=== PATIENT | female | born 1950 | race Caucasian/White ===

== ENCOUNTER 2024-06-09 06:24 | Day surgery (SDC) | payer MEDICARE, OTHER ==
[~2024-06-09] VITALS: Ht 162.6 cm; Wt 75.4 kg
[2024-06-09] VITALS (16 sets, daily range): BP systolic 104–163; BP diastolic 54–883
[~2024-06-09 06:24] MED LIST: ASPIR 8181 M1 PO; Acetaminophen 500 MG Tab PO SCH; CeFAZolin Sodium 2,000 MG in NS 100 ML IV SCH; Chlorhexidine Mouth Care 15 ML UDC MT SCH; Crestor40 MG PO; Flonase 0.05% N16 GM; IBUP600 PO; JARDIANCE25 MG PO; Lactated Ringer's 1,000 ML IV SCH; OxyCODONE HCL 10 MG TABCR PO SCH; Ropivacaine 0.5% HCl/Pf 123.125 MG,EPINEPHrine HCL 0.25 MG,Ketorolac Tromethamine 15 MG... INFIL SCH; TRULICITY3 MG/0.5 M SC; Tranexamic Acid 100 ML IV SCH; Vancomycin HCL 1,000 MG in NS 250 ML IV SCH
[2024-06-09] MEDS ORDERED: ALBU90OI INH (06:38)
[2024-06-09] MEDS ORDERED: Pulmicort Fle180 MCG INH (06:39)
[2024-06-09] MEDS ORDERED: FentaNYL Citrate 50 MCG/ML 2 ML Injection ONE (07:01)
[2024-06-09] MEDS ORDERED: Midazolam HCl 1MG / ML 2ML Vial ONE (07:02)
[2024-06-09] MEDS ORDERED: Dexamethasone Sod Phos 10 MG/ML 1ML VIAL ONE (07:05)
[2024-06-09] MEDS ORDERED: Phenylephrine HCl 100 MCG/ML-NS 10MLSYR (1MG/10ML) ONE (07:05)
[2024-06-09] MEDS ORDERED: Ondansetron HCl 2 MG / ML 2ML Vial ONE (07:05)
[2024-06-09] MEDS ORDERED: OxyCODONE HCL 5 MG TAB PO PRN ×3 (07:20→14:35)
[2024-06-09] MEDS ORDERED: Metoclopramide HCl 5MG / ML 2ML Vial IV PRN (07:20)
[2024-06-09] MEDS ORDERED: Magnesium Hydroxide Conc 10 ML UDC PO PRN (07:20)
[2024-06-09] MEDS ORDERED: Ondansetron HCl 2 MG / ML 2ML Vial IV PRN ×2 (07:20→10:00)
[2024-06-09] MEDS ORDERED: Bisacodyl 10 MG Supp PR PRN (07:25)
[2024-06-09] MEDS ORDERED: Promethazine HCl 25 MG Tab PO PRN (07:25)
[2024-06-09] MEDS ORDERED: DiphenhydrAMINE HCL 25 MG Cap PO PRN (07:25)
[2024-06-09] MEDS ORDERED: Insulin Regular 100 UNIT/ML 10ML Vial SC SCH (07:30)
[2024-06-09] MEDS ORDERED: HYDROmorphone HCl/Pf 1MG SYR IV PRN ×3 (07:30→10:00)
[2024-06-09] MEDS ORDERED: Ibuprofen 600 MG Tab PO PRN (07:35)
[2024-06-09] MEDS ORDERED: NS 1,000 ML IV SCH (07:45)
[2024-06-09] MEDS ORDERED: Albuterol HFA200 ACT/6.7 GM INH INH PRN (07:45)
[2024-06-09] MEDS ORDERED: Mometasone Furoate Inhaler 220 mcg 14 ACT INH SCH (07:50)
[2024-06-09] MEDS ORDERED: Lidocaine HCl 2% 20 ML MDV ONE (07:57)
[2024-06-09] MEDS ORDERED: propofoL 60 ML IV ONE (07:57)
[2024-06-09] MEDS ORDERED: Fluticasone 0.05% Nasal Spray SCH (09:00)
[2024-06-09] MEDS ORDERED: FentaNYL Citrate 50 MCG/ML 2 ML Injection IV PRN ×2 (10:00)
--- NOTE | 2024-06-09 11:04 | NUR ---
PT TO ROOM 221. DAY WRAP TO R KNEE. POLAR PACK ON. ALERT TO VERBAL. UNABLE TO WIGGLE TOES ON ARRIVAL. DENIES PAIN. IV PRESENTLY TO SL. SPOUSE AT BEDSIDE. VSS. WILL CONTINUE TO MONITOR.
[2024-06-09] MEDS ORDERED: Ketorolac Tromethamine 15mg Vial IV SCH (12:00)
--- NOTE | 2024-06-09 13:46 | NUR ---
PT ADMITS TO FEELING "WOOZY" AFTER OXYCODONE. PT IN TO SEE PT.
--- NOTE | 2024-06-09 13:52 | NUR ---
PT IN TO EVAL PATIENT. PT WITH NO DORSIFLEXION TO AFFECTED LEG. WILL REATTEMPT PT IN THE NEXT TWO HRS OR SO PER THERAPIST
[2024-06-09] MEDS ORDERED: CeFAZolin Sodium 2,000 MG in NS 100 ML IV SCH (15:45)
[2024-06-09] MEDS ORDERED: Acetaminophen 500 MG Tab PO SCH (16:00)
--- NOTE | 2024-06-09 16:18 | NUR ---
PT CLEARED BY PHYSICAL THERAPY. DC INSTRUCT REVIEWED WITH PT AND SPOUSE. STATED UNDERSTANDING. PRINTED INSTRUCT DISPENSED. DC'D TO POV VIA WC WITH PRINTED INSTRUCT.
[2024-06-09] MEDS ORDERED: Vancomycin HCL 1,000 MG in NS 250 ML IV SCH (19:30)
[2024-06-09] MEDS ORDERED: Docusate Sodium 100 MG Cap PO SCH (21:00)
[2024-06-10] MEDS ORDERED: Linezolid 600 MG Tab PO SCH (09:00)
[2024-06-10] MEDS ORDERED: Rosuvastatin Calcium 10 MG Tab PO SCH (09:00)
[2024-06-10] MEDS ORDERED: Empagliflozin 25 MG TAB PO SCH (09:00)
[2024-06-10] MEDS ORDERED: Aspirin 81 MG Chew PO SCH (09:00)
[2024-06-13] MEDS ORDERED: TRULICITY 3 MG/0.5 ML SC SCH (09:00)
== END 2024-06-09 16:39 | disposition home or self-care (01) ==
LOC: ORSCMMR 06:24 → ORD 07:30 → ORSCMMR 07:30 → SURS 10:39 → ORSCMMR 16:39
PROVIDERS: Orthopaedic Surgery
PROC: 0SRC0J9 Replacement of Right Knee Joint with Synthetic Substitute, Cemented, Open Approach (ICD-10-PCS; principal; 2024-06-09 07:30)
DX: M17.11 Unilateral primary osteoarthritis, right knee (principal); I10 Essential (primary) hypertension; I25.10 Atherosclerotic heart disease of native coronary artery without angina pectoris; E78.5 Hyperlipidemia, unspecified; E11.9 Type 2 diabetes mellitus without complications; Z79.84 Long term (current) use of oral hypoglycemic drugs; Z79.899 Other long term (current) drug therapy; Z79.82 Long term (current) use of aspirin
CPT/HCPCS: 73560-RT; 82947; 97110; 97116; 97162; A9270; C1713; C1776; J0171; J0690; J0735; J1100; J1885; J2250; J2371; J2405; J2704; J2795; J3010; J3370; J7050; J7120

== ENCOUNTER → 2024-07-05 | Outpatient (CLI) | payer MEDICARE, OTHER ==
[~2024-07-05] MED LIST changes: +ALBU90OI INH; -Acetaminophen 500 MG Tab PO SCH; -CeFAZolin Sodium 2,000 MG in NS 100 ML IV SCH; -Chlorhexidine Mouth Care 15 ML UDC MT SCH; -Lactated Ringer's 1,000 ML IV SCH; -OxyCODONE HCL 10 MG TABCR PO SCH; +Pulmicort Fle180 MCG INH; -Ropivacaine 0.5% HCl/Pf 123.125 MG,EPINEPHrine HCL 0.25 MG,Ketorolac Tromethamine 15 MG... INFIL SCH; -Tranexamic Acid 100 ML IV SCH; -Vancomycin HCL 1,000 MG in NS 250 ML IV SCH
== END ==
LOC: LAB SHORT 15:43 → LAB 15:43
DX: N39.0 Urinary tract infection, site not specified (principal)
CPT/HCPCS: 87077; 87086; 87186